=== PATIENT | female | born 1980 | race Caucasian/White ===

== ENCOUNTER 2017-01-25 15:41 | Emergency (ER) | payer OTHER ==
[~2017-01-25] VITALS: Ht 167.6 cm; Wt 81.0 kg
[2017-01-25 15:44] VITALS: BP 144/95; PULSE 98; RESP 16; O2SAT 100
[2017-01-25] MEDS ORDERED: ZLP10T PO (15:50)
[2017-01-25] MEDS ORDERED: NAPR550T44 PO (15:50)
[2017-01-25] MEDS ORDERED: ACET-171 PO (15:50)
[2017-01-25] MEDS ORDERED: AMPH30CA5 PO (15:50)
[2017-01-25] MEDS ORDERED: HYDR-656 PO (15:50)
--- NOTE | 2017-01-25 16:42 | ED.REPORT ---
HPI-Extremity Problem Upper Date of Service Jan 25, 2017 ED Provider: Lj Diamond MD accidentally stabbed herself with a hot box checker it went in deep and nicked a tendon she continued working and she injured it further and now she has tendonitis Dr. Prince at [facility] doctor she is on naproxen and supplementing with Tylenol sever pain on left wrist described as constant pressure that just hurts all the time left thumb is where she stabbed herself has had issues for a while and waiting to get in to see the surgeon wasn't able to sleep last night, waking up every 3 hrs due to pain 12/31/16 work related injury Nursing Notes Stated Complaint: LEFT WRIST AND HAND PAIN Chief Complaint: Wrist pain Allergies: Coded Allergies: No Known Allergies (Unverified , 01/25/17) Scheduled Dextroamphetamine/Amphetamine ER (Adderall XR) 30 Mg Capsule 60 MG PO DAILY Scheduled PRN Acetaminophen (Acetaminophen) 500 Mg Tablet 1,000 MG PO Q3hrs PRN PRN For Fever Naproxen Sodium (Naproxen Sodium) 550 Mg Tab 550 MG PO BID PRN PRN For Pain Zolpidem (Ambien) 10 Mg Tablet 10 MG PO HS PRN PRN For Insomnia hydrOXYzine Hcl (HydrOXYzine Hcl) 25 Mg Tablet 25 MG PO HS PRN PRN allergies General Time Seen by MD: 16:27 Chief Complaint Other (L wrist pain) Hx Obtained From: Patient Arrived By: Walk-in Onset Occurred: More than a week ago... (1 month) Symptom Duration: Since onset Caused by: Accidental Context: Occurred at: Workplace Location: : Hand left: Wrist left Quality: Painful, Throbbing Severity: Current: Moderate Recent Healthcare: Recent doctor visit Similar Sx Previous: Yes Past Medical History Past Medical History denies Past Surgical History denies Smoking History Unknown if Ever Smoker Social History Other Social History: Local resident Ambulatory Status Independent Review of Systems Musculoskeletal: Reports: Extremity pain (left thumb and left wrist ) Complete sys rev & neg: except as marked. Physical Exam Physical Exam Notes: left wrist splint radial aspect of distal forearma nd flexor side as well healed laceration over themar eminence no swelling no redness no palpable mass PULSES intact good extension of the thumb Initial Vital Signs Vital Signs (First) Date Time Temp Pulse Resp B/P Pulse Ox O2 Delivery O2 Flow Rate FiO2 01/25/17 15:44 36.1 98 16 144/95 100 Room Air Initial VS: Reviewed General/Constitutional: Well-developed, Well-nourished Head / Eyes: Atraumatic, Normocephalic, PERRL ENT: Mucous membranes moist, Conjunctiva normal, No scleral icterus Neck: Supple, Non-tender, Full range of motion Respiratory: Breath sounds normal, Clear to auscultation, No respiratory distress Cardiovascular: Regular rate & rhythm, Heart sounds normal, Intact distal pulses Abdomen / GI: Soft, Non-tender, No guarding, No rebound, No distention Lower Extremities: Vascular intact, Neuro intact, No swelling, No tenderness Skin: Warm, Dry, No cyanosis Psychiatric: Mood/affect normal, Behavior normal, Normal thought content Re-Eval/Medical Decision Med Decision/Clinical Course No evidence of acute injury or infection. Has ongoing pain, do not think this is something to treat with opiates. Will try gabapentin. Counseled Regarding: Diagnosis, Lab results, Need for follow-up, When/why to return to ED Discharge & Departure Impression: Primary Impression: Pain in left wrist Disposition: Home Discharge Condition All VS Reviewed: Yes Condition: Stable Additional Instructions: Continue with the Naproxen and Tylenol as needed for pain. I am sending you home with a prescription for Gabapentin. Try 300mg at bedtime and increase 2 to 3 times a day if it doesn't make you too drowsy. Follow up with Dr. Prince for further care. Return to the Emergency Department for any new or worsening symptoms. I hope you feel better soon! Alexibe Attestation Portion of this note were transcribed by Kamla Buckner. I, Dr. Diamond, personally performed the history, physical exam, and medical decision-making: I reviewed and confirmed the accuracy for the information in the transcribed note. Signed by: cassia Martinez, 01/25/17 1800 Lj Diamond MD Jan 25, 2017 16:42 Kamla Buckner Jan 25, 2017 17:04
[2017-01-25 17:30] VITALS: BP 135/97; PULSE 76; RESP 18; O2SAT 98
== END 2017-01-25 17:30 | disposition home or self-care (01) ==
LOC: SED 15:41
DX: M25.532 Pain in left wrist (principal); W27.8XXD Contact with other nonpowered hand tool, subsequent encounter; Y93.89 Activity, other specified; Y92.9 Unspecified place or not applicable; Y99.0 Civilian activity done for income or pay

== ENCOUNTER 2017-07-08 02:51 | Emergency (ER) | payer OTHER ==
[~2017-07-08] VITALS: Ht 167.6 cm; Wt 75.0 kg
[~2017-07-08 02:51] MED LIST: ACET-171 PO; AMPH30CA5 PO; HYDR-656 PO; NAPR550T44 PO; ZLP10T PO
[2017-07-08 02:55] VITALS: BP 129/90; PULSE 112; RESP 20; O2SAT 98
--- NOTE | 2017-07-08 03:06 | ED.REPORT ---
HPI-General Illness Date of Service Jul 08, 2017 ED Provider: Jonathan Beach MD A 37 year old female with a history of PTSD and insomnia presents to the ED complaining of insomnia. The pt has been having difficulty sleeping for the last six days despite taking her regular medications. She regularly takes Trazodone among several other medications, though she stopped taking her Ambien regularly several months ago. She has taken Ambien for the last six nights without effect, and took a Trazodone at 22:00. The pt is concerned that there may be a harmful reaction or oversedation if she takes any higher or irregular doses of her medications. She denies visual or auditory hallucinations. The pt has a follow up appointment scheduled with her psychiatrist on 07/16/2017. Nursing Notes Stated Complaint: NOT SLEEPING,PTSD Chief Complaint: General Complaint Nursing Notes Reviewed: Yes Allergies: Coded Allergies: No Known Allergies (Unverified , 01/25/17) Scheduled Dextroamphetamine/Amphetamine ER (Adderall XR) 30 Mg Capsule 60 MG PO DAILY Scheduled PRN Acetaminophen (Acetaminophen) 500 Mg Tablet 1,000 MG PO Q3hrs PRN PRN For Fever Naproxen Sodium (Naproxen Sodium) 550 Mg Tab 550 MG PO BID PRN PRN For Pain Zolpidem (Ambien) 10 Mg Tablet 10 MG PO HS PRN PRN For Insomnia hydrOXYzine Hcl (HydrOXYzine Hcl) 25 Mg Tablet 25 MG PO HS PRN PRN allergies General Time Seen by MD: 03:06 Chief Complaint Other (Insomnia) Hx Obtained From: Patient Arrived By: Walk-in Sudden in Onset?: No Onset Occurred: 6 days ago Symptom Duration: Since onset Recent Healthcare: Recent doctor visit Similar Sx Previous: Yes Past Medical History Past Medical History PTSD insomnia Past Surgical History none reported Smoking History Unknown if Ever Smoker Social History Other Social History: Good social support, Local resident Ambulatory Status Independent Review of Systems Full Review of Systems Respiratory: Denies: Non-productive cough, Shortness of breath Cardiovascular: Denies: Chest pain GI: Denies: Abdominal pain, Vomiting Musculoskeletal: Denies: Back pain, Neck pain Skin: Denies Rash Psychiatric: Reports: Insomnia, Denies: Hallucinations, auditory, Hallucinations, visual Complete sys rev & neg: except as marked. Physical Exam Vital Signs Vital Signs Date Time Temp Pulse Resp B/P Pulse Ox O2 Delivery O2 Flow Rate FiO2 07/08/17 02:55 37.0 112 20 129/90 98 Room Air Initial VS: Reviewed General/Constitutional: Awake, Alert tremulous Head / Eyes: Atraumatic, Normocephalic, PERRL, EOMI ENT: Atraumatic, Airway patent, Mucous membranes moist Neck: Atraumatic, Supple, Full range of motion Respiratory / Chest: Atraumatic, Breath sounds NL, Breath sounds = bilat, No respiratory distress Cardiovascular: Heart rate NL, Regular rhythm, Heart sounds NL Abdomen: Atraumatic, Soft, Non-tender Back: Atraumatic, Full range of motion Upper Extremities Upper Extremity / MS: Atraumatic, Full range of motion Lower Extremity / Pelvis / MS: Atraumatic, Full range of motion Skin: Atraumatic, Color NL, No rash, Warm, Dry Neurologic: Oriented X3, Speech NL, No motor deficits, No sensory deficits Psychiatric: Affect NL Abnormal Mood/Affect: Positive: Anxious Re-Eval/Medical Decision Med Decision/Clinical Course 37-year-old with PTSD anxiety and insomnia presents basically requesting advice on managing her multiple meds. She has taken trazodone 100 mg without much effect, and is advised to take an additional one tonight. If after an hour, she is unable to sleep, a single dose of Ambien would not be unsafe. She is discharged in stable condition to follow up with her doctor for manipulation of her medication list. Source of Hx: Old records Time of Eval: 03:06 Patient Status: Condition improved Re-Evaluation/Progress Note: Pt informed of the diagnosis and plan for discharge during the initial interview. The pt understands and agrees with the plan. All questions are addressed at this time. Counseled Regarding: Diagnosis, Need for follow-up, When/why to return to ED Discharge & Departure Primary Impression: Insomnia Insomnia type: unspecified Qualified Code: G47.00 - Insomnia, unspecified Additional Impressions: Anxiety PTSD (post-traumatic stress disorder) Disposition: Home Discharge Condition All VS Reviewed: Yes Condition: Stable Patient Instructions: Insomnia (ED) Additional Instructions: You may use an Ambien to get home, if you are still unable to sleep. Contact your doctor today for possible changes in your medical therapy. Referrals: Betzy Trotter MD (PCP) Scribe Attestation Portions of this note were transcribed by Abbie Araujo. IDr. Beach personally performed the history, physical exam and medical decision-making; I reviewed and confirmed the accuracy of the information in the transcribed note. copies to: Betzy Trotter MD, Christopher W MD Jul 08, 2017 03:06 ABBIE ARAUJO Jul 08, 2017 03:13
== END 2017-07-08 04:00 | disposition home or self-care (01) ==
LOC: SED 02:51
DX: G47.00 Insomnia, unspecified (principal); F41.9 Anxiety disorder, unspecified; F43.10 Post-traumatic stress disorder, unspecified